=== PATIENT | male | born 1965 | race African-American/Black ===

== ENCOUNTER 2016-12-20 08:55 | Emergency (ER) | payer OTHER ==
[~2016-12-20] VITALS: Ht 193 cm; Wt 129.0 kg
[2016-12-20 09:06] VITALS: BP 175/91; PULSE 73; RESP 17; O2SAT 94
[2016-12-20] MEDS ORDERED: oxyCODONE/ACETAMINOPHEN 10 MG/325 MG TAB PO ONE (09:15)
--- NOTE | 2016-12-20 09:41 | RADRPT ---
EXAM DATE/TIME: 12/20/2016 09:22 [facility] COMPARISON: WRIST RIGHT COMPLETE ([id number]), December 20, 2016, 9:25. INDICATIONS : Right elbow pain post fall today. MEDICAL HISTORY : None. SURGICAL HISTORY : None. ENCOUNTER: Initial ACUITY: 1 day PAIN SCORE: 9/10 LOCATION: Right elbow. FINDINGS: Multiple view examination of the right elbow demonstrates no soft tissue swelling, joint effusion, or fracture. The osseous structures are in normal alignment. Bony mineralization is normal. CONCLUSION: Unremarkable examination of the right elbow. Leandra Duran MD on December 20, 2016 at 9:39 Board Certified Radiologist. This report was verified electronically.
--- NOTE | 2016-12-20 09:42 | RADRPT ---
EXAM DATE/TIME: 12/20/2016 09:25 [facility] COMPARISON: No previous studies available for comparison. INDICATIONS : Right wrist pain post fall today. MEDICAL HISTORY : None. SURGICAL HISTORY : None. ENCOUNTER: Initial ACUITY: 1 day PAIN SCORE: 9/10 LOCATION: Right wrist. FINDINGS: Three view examination of the right wrist demonstrates no soft tissue swelling, dislocation, or fract ure. There mild degenerative changes identified at the first digit carpometacarpal joint. Multiple w ell-circumscribed lucencies involving the body of the hamate. The carpal bones are in normal alignmen t. The joint spaces are maintained. Bony mineralization is normal. CONCLUSION: No evidence of fracture.. Leandra Duran MD on December 20, 2016 at 9:40 Board Certified Radiologist. This report was verified electronically.
--- NOTE | 2016-12-20 09:43 | RADRPT ---
EXAM DATE/TIME: 12/20/2016 09:28 [facility] COMPARISON: No previous studies available for comparison. INDICATIONS : Lower back pain post fall today. MEDICAL HISTORY : None. SURGICAL HISTORY : None. ENCOUNTER: Initial ACUITY: 1 day PAIN SCORE: 9/10 LOCATION: lumbar spine. FINDINGS: Two view examination was performed. There are five non-rib bearing vertebral bodies. The vertebral bodies are in normal alignment without evidence of subluxation or scoliosis. There is disc space narr owing at the level of L2/L3 and at L4/L5. Mild anterior endplate degenerative changes are seen at all lumbar levels. The pedicles are intact. Bony mineralization is normal. No fracture is identified. CONCLUSION: Degenerative disc changes. No evidence of fracture. Leandra Duran MD on December 20, 2016 at 9:41 Board Certified Radiologist. This report was verified electronically.
--- NOTE | 2016-12-20 09:44 | PD ---
HPI Chief Complaint: Fall Time Seen by Provider: 09:06 Travel History International Travel<30 days: No Contact w/Intl Traveler<30days: No Traveled to known affect area: No History of Present Illness HPI This is a 51-year-old male who presents to the emergency department having fallen down the stairs. He injured his low back, and hit his head. He is reporting dizziness. He has moderate severity low back pain, constant, as well as a throbbing headache and neck pain. He also is complaining of pain in his right wrist and right elbow. He doesn't know if he lost consciousness. He thinks he remembers all the details of the accident. He hasn't vomited. PFSH Past Medical History Diminished Hearing: No Respiratory: Yes (bronchitis ) Tetanus Vaccination: Unknown ?: Not Past Surgical History Surgical History: No Previous Surgery Social History Alcohol Use: No Tobacco Use: No Substance Use: No Allergies-Medications (Allergen,Severity, Reaction): Coded Allergies: nitroglycerin (Verified Allergy, Severe, nausea, 12/20/16) Review of Systems Except as stated in HPI: all other systems reviewed are Neg Physical Exam Narrative GENERAL:Well appearing, no acute distress SKIN: Focused skin assessment warm and dry. HEAD: Soft hematoma along the base of the posterior occiput. EYES: Pupils equal and round. No injection or drainage. ENT: Moist mucous membranes NECK: Trachea midline. CARDIOVASCULAR: Regular rate and rhythm. No murmur appreciated. RESPIRATORY: Clear to auscultation. Breath sounds equal bilaterally. GASTROINTESTINAL: Abdomen soft, non-tender, nondistended. MUSCULOSKELETAL: Pain with flexion and extension of the right wrist and right elbow. Tender to palpation over the midline cervical spine. NEUROLOGICAL: Awake and alert. No obvious cranial nerve deficits. Moving all extremities. PSYCHIATRIC: Appropriate mood and affect; insight and judgment normal. Data Data Last Documented VS Vital Signs Date Time Temp Pulse Resp B/P (MAP) Pulse Ox O2 Delivery O2 Flow Rate FiO2 12/20/16 09:06 73 17 175/91 (119) [address] Brain W/O Iv Contrast(Rout) (12/20/16 ) Ct Cerv Spine W/O Contrast (12/20/16 ) Spine, Lumbar - Ltd (Ap & Lat) (12/20/16 ) Wrist, Complete ([id number]) (12/20/16 ) Elbow, Complete (4 Vws) (12/20/16 ) Oxycodone-Acetamin 10-325 Mg (Percocet 1 (12/20/16 09:15) MDM Medical Decision Making Medical Screen Exam Complete: Yes Emergency Medical Condition: Yes Interpretation(s) Hypertensive Differential Diagnosis Subdural hematoma, subarachnoid hemorrhage, cervical spine fracture, lumbar spine fracture, contusion, distal radius fracture Narrative Course This is a 51-year-old male who presents to the emergency department having fallen down the stairs. He is reporting severe head pain. He has a hematoma on the posterior occiput and I was concerned for possible underlying skull fractures a CT of the head was obtained. Cervical spine also was reassuring. X -rays of the extremities and low back were obtained which are reassuring. Patient was given pain control in the emergency department. He'll be discharged on anti-inflammatories Diagnosis Primary Impression: Closed head injury Qualified Codes: S09.90XA - Unspecified injury of head, initial encounter Patient Instructions: General Instructions Additional Instructions: If you develop headache, difficulty walking, difficulty talking, weakness, numbness, lightheadedness or severe pain return to the emergency department. It is common to have sore muscles following an accident. Take naproxen as needed for pain. If you are not improved in 2 days follow up with your primary care physician without fail. Med/Other Pt SpecificInfo: Prescription(s) given Scripts Naproxen (Naproxen) 500 Mg Tab 500 MG PO BID, #10 TAB 0 Refills Prov: Allyson Hammond MD 12/20/16 Disposition: 01 DISCHARGE HOME Condition: Stable Allyson Hammond MD Dec 20, 2016 09:44
--- NOTE | 2016-12-20 09:45 | RADRPT ---
EXAM DATE/TIME: 12/20/2016 09:37 [facility] COMPARISON: No previous studies available for comparison. INDICATIONS : Fall hitting his head on the steps. RADIATION DOSE: 50.28 CTDIvol (mGy) MEDICAL HISTORY : Bronchititis SURGICAL HISTORY : None. ENCOUNTER: Initial ACUITY: 1 day PAIN SCALE: 8/10 LOCATION: cranial posterior TECHNIQUE: Multiple contiguous axial images were obtained of the head. Using automated exposure control and adj ustment of the mA and/or kV according to patient size, radiation dose was kept as low as reasonably a chievable to obtain optimal diagnostic quality images. DICOM format image data is available electro nically for review and comparison. FINDINGS: CEREBRUM: The ventricles are normal for age. No evidence of midline shift, mass lesion, hemorrhage or acute in farction. No extra-axial fluid collections are seen. POSTERIOR FOSSA: The cerebellum and brainstem are intact. The 4th ventricle is midline. The cerebellopontine angle i s unremarkable. EXTRACRANIAL: The visualized portion of the orbits is intact. SKULL: The calvaria is intact. No evidence of skull fracture. CONCLUSION: Normal examination. Leandra Duran MD on December 20, 2016 at 9:42 Board Certified Radiologist. This report was verified electronically.
--- NOTE | 2016-12-20 09:57 | RADRPT ---
EXAM DATE/TIME: 12/20/2016 09:37 [facility] COMPARISON: No previous studies available for comparison. INDICATIONS : Fall with neck pain. RADIATION DOSE: 21.49 CTDIvol (mGy) MEDICAL HISTORY : Bronchititis SURGICAL HISTORY : None. ENCOUNTER: Initial ACUITY: 1 day PAIN SCALE: 8/10 LOCATION: neck TECHNIQUE: Volumetric scanning of the cervical spine was performed. Multiplanar reconstructions in the sagittal, coronal and oblique axial planes were performed. Using automated exposure control and adjustment o f the mA and/or kV according to patient size, radiation dose was kept as low as reasonably achievable to obtain optimal diagnostic quality images. DICOM format image data is available electronically f or review and comparison. FINDINGS: VERTEBRAE: Normal vertebral body height. ALIGNMENT: No evidence of subluxation. No evidence of fracture or dislocation. There is mild degenerative change present from C4-C7. No sign ificant disc protrusion or neural foraminal narrowing. The image lungs are clear. Adjacent soft tissu es are normal. CONCLUSION: No evidence of osseous or soft tissue injury. Leandra Duran MD on December 20, 2016 at 9:54 Board Certified Radiologist. This report was verified electronically.
[2016-12-20] MEDS ORDERED: NAPR500T PO (10:18)
== END 2016-12-20 10:59 | disposition home or self-care (01) ==
LOC: NEPC 08:55
DX: S09.90XA Unspecified injury of head, initial encounter (principal); S00.83XA Contusion of other part of head, initial encounter; M54.5 Low back pain; M54.2 Cervicalgia; M25.531 Pain in right wrist; M25.521 Pain in right elbow; Z87.09 Personal history of other diseases of the respiratory system; W10.9XXA Fall (on) (from) unspecified stairs and steps, initial encounter
CPT/HCPCS: 70450; 72100; 72125; 73080; 73110; 99285